=== PATIENT | male | born 1970 ===

== ENCOUNTER 2017-08-02 21:17 | Emergency (ER) | payer OTHER ==
[2017-08-02 22:36] VITALS: BP 130/66
--- NOTE | 2017-08-11 21:43 | ED ---
Mary Allen Emily, scribed for Alexy Rolon MD on 08/02/17 at 2221 . Head Injury - HPI Summary HPI Summary: This patient is a 46 year old M presenting to [facility] accompanied by family with a chief complaint of head injury since that occurred at 2129 today. Pt slipped and fell out of shower, hitting his head on the toilet. The patient rates the pain 4/10 in severity. Symptoms aggravated by nothing. Symptoms alleviated by nothing. Patient reports laceration to back of head and headache. Patient denies memory loss, LOC, and dizziness. No anterograde or retrograde amnesia. Pt reports recent tetanus. Patients medications reviewed this visit. - History Of Current Complaint Chief Complaint: EDHeadInjury Stated Complaint: FALL/HEAD INJURY Hx Obtained From: Patient Mechanism Of Injury: Fall From A Standing Position Onset/Duration: Started Hours Ago, Still Present Pain Intensity: 4 - Allergies/Home Medications Allergies/Adverse Reactions: Allergies Allergy/AdvReac Type Severity Reaction Status Date / Time Amoxicillin Allergy GI Upset Verified 08/02/17 21:52 PMH/Surg Hx/FS Hx/Imm Hx Previously Healthy: No Cardiovascular History: Reports: Hx Hypercholesterolemia, Hx Hypertension EENT History: Denies: Hx Deafness Infectious Disease History: No Infectious Disease History: Denies: Traveled Outside the [place] in Last 30 Days - Family History Known Family History: Positive: Unknown - Social History Occupation: Employed Full-time Lives: With Family Alcohol Use: Occasionally Substance Use Type: Reports: None Smoking Status (MU): Never Smoked Tobacco Review of Systems Positive: Other - Positive laceration to back of head Neurological: Other - Positive head injury. Negative dizziness and memory loss Negative: Weakness, Syncope All Other Systems Reviewed And Are Negative: Yes Physical Exam - Summary Physical Exam Summary: Appearance: Well-appearing, Well-nourished Skin: Warm, Dry, No rash, Linear laceration, posterior scalp, relatively superficial, about 5 cm in length. Eyes: Normal, PERRL, EOMI, sclera anicteric ENT: Normal Neck: Supple, nontender Respiratory: Clear to auscultation Cardiovascular: S1, S2, no murmur, no rub, no gallop Abdomen: Soft, nontender, no organomegaly Bowel sounds: Present Musculoskeletal: Normal, Strength/ROM Intact, no edema, pulses symmetrical Neurological: Normal, A&Ox3, cranial nerves 2-12 wnl, follows commands, gait not tested, sensation intact to pin and light touch Psychiatric: affect normal, behavior appropriate, dressed appropriately, judgment intact Triage Information Reviewed: Yes Vital Signs On Initial Exam: Initial Vitals Temp Pulse Resp BP Pulse Ox 98.9 F 88 18 144/88 93 08/02/17 21:25 08/02/17 21:25 08/02/17 21:25 08/02/17 21:25 08/02/17 21:25 Vital Signs Reviewed: Yes - Jennifer Coma Scale Coma Scale Total: 15 Procedures - Laceration/Wound Repair 1 Location: head Description: Linear Laceration/Wound Explored: clean Layer Closure?: Yes - closed with tissue glue Diagnostics - Vital Signs Vital Signs Temp Pulse Resp BP Pulse Ox 08/02/17 21:25 98.9 F 88 18 144/88 93 - Laboratory Lab Statement: Any lab studies that have been ordered have been reviewed, and results considered in the medical decision making process. Head Injury Course/Dx Assessment/Plan: This patient is a 46 year old M presenting to [facility] accompanied by family with a chief complaint of head injury since that occurred at 2130 today. Pt slipped and fell out of shower, hitting his head on the toilet. The patient rates the pain 4/10 in severity. Symptoms aggravated by nothing. Symptoms alleviated by nothing. Patient reports laceration to back of head and headache. Patient denies memory loss, LOC, and dizziness. No anterograde or retrograde amnesia. Pt reports recent tetanus. Patients medications reviewed this visit. PMHx includes HTN, cholesterol. Physical Exam Findings. Linear laceration, posterior scalp, relatively superficial, about 5 cm in length. Medical Decision Making. Laceration cleaned with sterile saline, closed with tissue glue. Medications are antihypertensive Lipitor, Exforge, and diclofenac. Allergies to amoxicillin. Patient will be discharged with follow up from PCP. The patient is agreeable with this plan. - Diagnoses Provider Diagnoses: Laceration of scalp Discharge - Discharge Plan Condition: Stable Disposition: HOME Referrals: No Primary Care Phys,NOPCP [Primary Care Provider] - The documentation as recorded by the Mary miles Emily accurately reflects the service I personally performed and the decisions made by me, Alexy Rolon MD.
== END 2017-08-02 22:35 | disposition home or self-care (01) ==
LOC: ED 21:17
DX: S01.01XA Laceration without foreign body of scalp, initial encounter (principal); W19.XXXA Unspecified fall, initial encounter; Y93.9 Activity, unspecified; Y92.9 Unspecified place or not applicable
CPT/HCPCS: 99282